=== PATIENT | female | born 1990 | race Caucasian/White ===

== ENCOUNTER 2018-05-10 05:35 | Emergency (ER) | payer SELFPAY | END 2018-05-10 06:20 | disposition home or self-care (01) | LOC: ER 05:35 | DX: R10.9 Unspecified abdominal pain (principal); R11.0 Nausea; Z53.21 Procedure and treatment not carried out due to patient leaving prior to being seen by health care provider ==

== ENCOUNTER 2019-10-28 10:23 | Emergency (ER) | payer MEDICAID ==
[~2019-10-28] VITALS: Ht 157.5 cm; Wt 79.0 kg
[2019-10-28 11:47] VITALS: BP 118/62
== END 2019-10-28 11:48 | disposition home or self-care (01) ==
LOC: ER 11:03
DX: K04.7 Periapical abscess without sinus (principal)
CPT/HCPCS: 99283

== ENCOUNTER 2020-10-30 01:50 | Observation (INO) | payer MEDICAID ==
[~2020-10-30] VITALS: Ht 157.5 cm; Wt 87.1 kg
[2020-10-30] MEDS ORDERED: VIT1TABL62 PO (02:57)
[2020-10-30] MEDS ORDERED: PNV1TABL76 PO (02:57)
[2020-10-30] MEDS ORDERED: FERR325T6 PO (02:57)
[2020-10-30] MEDS ORDERED: FISH GT (02:57)
== END 2020-10-30 05:09 | disposition home or self-care (01) ==
LOC: 8 EST LDRP 01:50
PROVIDERS: ADMIT Obstetrics & Gynecology; ATTEND Obstetrics & Gynecology
DX: O62.9 Abnormality of forces of labor, unspecified (principal); O26.893 Other specified pregnancy related conditions, third trimester; Z3A.36 36 weeks gestation of pregnancy; R10.9 Unspecified abdominal pain
CPT/HCPCS: 59025; 76805; 76817; 76818; G0378; 99281

== ENCOUNTER 2020-11-05 13:00 | Observation (INO) | payer MEDICAID ==
[~2020-11-05] VITALS: Ht 157.5 cm; Wt 89.8 kg
[~2020-11-05 13:00] MED LIST: FERR325T6 PO; FISH GT; PNV1TABL76 PO; VIT1TABL62 PO
[2020-11-05] MEDS ORDERED: ACETAMINOPHEN 500MG TABLET PO NR (14:00)
== END 2020-11-05 14:50 | disposition home or self-care (01) ==
LOC: 8 EST LDRP 13:00
PROVIDERS: ADMIT Obstetrics & Gynecology; ATTEND Obstetrics & Gynecology
DX: O99.891 Other specified diseases and conditions complicating pregnancy (principal); R51.9 Headache, unspecified; O26.893 Other specified pregnancy related conditions, third trimester; R42 Dizziness and giddiness; Z3A.37 37 weeks gestation of pregnancy
CPT/HCPCS: 59025; G0378; 99281

== ENCOUNTER 2020-11-14 22:15 | Observation (INO) | payer MEDICAID ==
[~2020-11-14] VITALS: Ht 152.4 cm; Wt 90.7 kg
[2020-11-14] MEDS ORDERED: CALC-989 PO (22:54)
[2020-11-14] MEDS ORDERED: [UNRECOGNIZED DRUG - CODE] (22:54)
[2020-11-14] MEDS ORDERED: PREN-182 PO (22:54)
[2020-11-14] MEDS ORDERED: FERR325T6 PO (22:54)
== END 2020-11-15 01:17 | disposition home or self-care (01) ==
LOC: 8 EST LDRP 22:15
PROVIDERS: ADMIT Obstetrics & Gynecology; ATTEND Obstetrics & Gynecology
DX: O62.9 Abnormality of forces of labor, unspecified (principal); O99.891 Other specified diseases and conditions complicating pregnancy; M54.5 Low back pain; Z3A.36 36 weeks gestation of pregnancy
CPT/HCPCS: G0378 ×2; 99281

== ENCOUNTER 2020-11-17 08:02 | Inpatient (IN) | payer MEDICAID ==
[~2020-11-17] VITALS: Ht 157.5 cm; Wt 89.4 kg
[~2020-11-17 08:02] MED LIST changes: +CALC-989 PO; +PREN-182 PO; +[UNRECOGNIZED DRUG - CODE]
[2020-11-17] MEDS ORDERED: NALOXONE HCL 0.4 MG/ML 1ML VIAL IM PRN (08:45)
[2020-11-17] MEDS ORDERED: LIDOCAINE HCL 1% 20ML VIAL (Pyxis) INJ INFIL SCH (08:45)
[2020-11-17] MEDS ORDERED: METHYLERGONOVINE MALEATE 0.2 MG/ML IM PRN (08:45)
[2020-11-17] MEDS: LACTATED RINGERS 1,000 ML IV SCH ×2 (09:34→16:44)
[2020-11-17] MEDS: DEXT 5%/LR + PITOCIN 20UNITS/L 1,000 ML IV SCH (09:35)
[2020-11-17 09:45] LABS: CLARITY URINE CLOUDY (CLEAR); COLOR URINE YELLOW (YELLOW); KETONES URINE NEGATIVE (NEGATIVE); LEUKOCYTE ESTERASE URINE 2+ (NEGATIVE); NITRITE URINE NEGATIVE (NEGATIVE); OCCULT BLOOD URINE NEGATIVE (NEGATIVE); PH URINE 5.5 (4.5-8.0); PROTEIN URINE NEGATIVE (NEGATIVE); SPECIFIC GRAVITY URINE 1.023 (1.005-1.030)
[2020-11-17 09:51] LABS: INR 0.9; PARTIAL THROMBOPLASTIN TIME 24.6 sec (23.4-31.0); PROTHROMBIN TIME 9.8 sec (9.6-11.0)
[2020-11-17 10:04] LABS: BASOPHILS % 0.3 % (0.0-2.0); EOSINOPHILS % 1.6 % (0.0-5.0); HEMATOCRIT. 33.2 % (36.0-48.0); HEMOGLOBIN. 11.3 g/dL (12.0-16.0); LYMPHOCYTES % 31.7 % (20.0-50.0); MEAN CORPUSCULAR HEMOGLOBIN 29.9 pg (28.0-32.0); MEAN CORPUSCULAR VOLUME 88.2 fL (81.0-99.0); MEAN PLATELET VOLUME 8.3 fl (7.4-10.4); MONOCYTES % 9.2 % (2.0-8.0); NEUTROPHILS % 57.2 % (40.0-76.0); PLATELET 317 x1000/uL (130-400); RED BLOOD CELL COUNT 3.76 mill/uL (4.2-5.4); RED CELL DISTRIBUTION WIDTH 13.4 % (11.6-14.6)
[2020-11-17 10:31] LABS: *AMPHETAMINES SCREEN URINE NEGATIVE (NEGATIVE); *BARBITURATES SCREEN URINE NEGATIVE (NEGATIVE); *BENZODIAZEPINES SCREEN URINE NEGATIVE (NEGATIVE); *COCAINE SCREEN URINE NEGATIVE (NEGATIVE); METHADONE URINE SCREEN NEGATIVE (NEGATIVE)
[2020-11-17 10:32] LABS: CANNABINOID URINE SCREEN NEGATIVE (NEGATIVE); OPIATES URINE SCREEN NEGATIVE (NEGATIVE); PHENCYCLIDINE URINE SCREEN NEGATIVE (NEGATIVE)
[2020-11-17 11:46] LABS: HEPATITIS B SURFACE ANTIGEN NEGATIVE
[2020-11-17] MEDS: BUTORPHANOL TARTRATE 2 MG/ML VIAL IV PRN ×2 (17:31→22:41)
[2020-11-18] MEDS: BUTORPHANOL TARTRATE 2 MG/ML VIAL IV PRN (03:58)
[2020-11-18] MEDS: LACTATED RINGERS 1,000 ML IV SCH ×2 (04:31→07:08)
[2020-11-18] MEDS ORDERED: FENTANYL CITRATE/PF 50MCG/ML 2ML VIAL ONE ×2 (05:56→22:03)
[2020-11-18] MEDS ORDERED: BUPIVACAINE HCL/PF 0.25% (2.5MG/ML) 10ML ONE ×2 (05:56→22:03)
[2020-11-18] MEDS ORDERED: SODIUM CHLORIDE 0.9% 10ML VIAL ONE (05:56)
[2020-11-18] MEDS ORDERED: EPHEDRINE SULFATE 50MG/ML VIAL ONE (05:56)
[2020-11-18] MEDS ORDERED: ROPIVACAINE HCL/PF 0.2% (2MG/ML) EPID 200ML EPI SCH (06:15)
[2020-11-18] MEDS: DEXT 5%/LR + PITOCIN 20UNITS/L 1,000 ML IV SCH ×2 (07:20→23:47)
[2020-11-18] MEDS ORDERED: LACTATED RINGERS 1,000 ML IV SCH (18:30)
[2020-11-18] MEDS ORDERED: ROPIVACAINE HCL/PF EPIDURAL 200 ML EPI ONE (22:00)
[2020-11-18] MEDS ORDERED: BENZOCAINE/LANOLIN/ALOE VERA SPRAY TOP PRN (23:15)
[2020-11-18] MEDS ORDERED: GLYCERIN/WITCH HAZEL LEAF MEDICATED PAD TOP PRN (23:15)
[2020-11-18] MEDS ORDERED: LANOLIN OINT 7GM TUBE TOP PRN (23:15)
[2020-11-18] MEDS ORDERED: HEMORRHOIDAL SUPP PR PRN (23:15)
[2020-11-18] MEDS ORDERED: IBUPROFEN 400MG TABLET PO PRN (23:15)
[2020-11-18] MEDS ORDERED: BISACODYL 10MG SUPP PR PRN (23:15)
[2020-11-18] MEDS ORDERED: ACETAMINOPHEN WITH CODEINE 300/30MG TABLET PO PRN (23:15)
[2020-11-19] VITALS (7 sets, daily range): BP systolic 96–122; BP diastolic 56–79
[2020-11-19] MEDS: IBUPROFEN 800MG TABLET PO PRN ×4 (03:44→21:56)
[2020-11-19] MEDS: DEXT 5%/LR + PITOCIN 20UNITS/L 1,000 ML IV SCH (04:51)
[2020-11-19] MEDS ORDERED: MAGNESIUM/ALUMINUM HYDROXIDE/SIMETHICONE 30ML UDC PO SCH (07:30)
[2020-11-19] MEDS ORDERED: SIMETHICONE 80MG TABLET CHEW PO SCH (08:00)
[2020-11-19 09:19] LABS: BASOPHILS % 0.2 % (0.0-2.0); EOSINOPHILS % 1.2 % (0.0-5.0); HEMATOCRIT. 26.8 % (36.0-48.0); HEMOGLOBIN. 8.9 g/dL (12.0-16.0); LYMPHOCYTES % 21.6 % (20.0-50.0); MEAN CORPUSCULAR HEMOGLOBIN 29.4 pg (28.0-32.0); MEAN CORPUSCULAR VOLUME 88.4 fL (81.0-99.0); MEAN PLATELET VOLUME 7.7 fl (7.4-10.4); MONOCYTES % 7.9 % (2.0-8.0); NEUTROPHILS % 69.1 % (40.0-76.0); PLATELET 238 x1000/uL (130-400); RED BLOOD CELL COUNT 3.03 mill/uL (4.2-5.4); RED CELL DISTRIBUTION WIDTH 13.5 % (11.6-14.6)
[2020-11-19] MEDS: FERROUS SULFATE 325MG TABLET PO SCH (09:38)
[2020-11-19] MEDS: PRENATAL VIT/FE FUMARATE/FA TABLET PO SCH (09:38)
[2020-11-19] MEDS ORDERED: DOCUSATE SODIUM 100MG CAPSULE PO SCH (21:00)
[2020-11-20 04:00] VITALS: BP 113/75
[2020-11-20] MEDS ORDERED: IBUP-2030 PO (05:14)
[2020-11-20 07:30] VITALS: BP 106/64
[2020-11-20] MEDS: IBUPROFEN 800MG TABLET PO PRN (08:22)
[2020-11-20] MEDS: FERROUS SULFATE 325MG TABLET PO SCH (08:22)
[2020-11-20] MEDS: PRENATAL VIT/FE FUMARATE/FA TABLET PO SCH (08:22)
== END 2020-11-20 11:00 | disposition home or self-care (01) | DRG 560 ==
LOC: 8 EST LDRP 08:02 → OBSVTOIN 08:02 → 8 EST LDRP 08:15 → 8EST 11-19 00:40
PROVIDERS: ADMIT Obstetrics & Gynecology; ATTEND Obstetrics & Gynecology
PROC: 10D07Z6 Extraction of Products of Conception, Vacuum, Via Natural or Artificial Opening (ICD-10-PCS; principal; 2020-11-18)
PROC: 3E0R3BZ Introduction of Anesthetic Agent into Spinal Canal, Percutaneous Approach (ICD-10-PCS; 2020-11-18)
PROC: 00HU33Z Insertion of Infusion Device into Spinal Canal, Percutaneous Approach (ICD-10-PCS; 2020-11-18)
DX: O80 Encounter for full-term uncomplicated delivery (principal); Z20.822 Contact with and (suspected) exposure to COVID-19; Z3A.39 39 weeks gestation of pregnancy; Z37.0 Single live birth
CPT/HCPCS: 36415; 80305; 81003; 85025; 86592; 86703; 86762; 86850; 86900; 87340; 87426; G0378; J0595; J2590; J2795; J3010; J3490; J7120; A4315

== ENCOUNTER 2024-02-24 14:16 | Emergency (ER) | payer SELFPAY ==
[~2024-02-24] VITALS: Ht 157.5 cm; Wt 74.0 kg
[~2024-02-24 14:16] MED LIST changes: +IBUP-2030 PO; -PNV1TABL76 PO; -[UNRECOGNIZED DRUG - CODE]
[2024-02-24 14:28] VITALS: BP 130/82; PULSE 74; RESP 16; TEMP 98.5; O2SAT 100
== END 2024-02-24 17:18 | disposition left against medical advice (07) ==
LOC: ER 14:16
DX: M54.2 Cervicalgia (principal); Z53.21 Procedure and treatment not carried out due to patient leaving prior to being seen by health care provider